=== PATIENT | female | born 1935 | race African-American/Black ===

== ENCOUNTER 2016-05-27 06:51 | Day surgery (SDC) | payer MEDICARE ==
[2016-05-27] MEDS ORDERED: ECOTRIN PO ONE (07:14)
[2016-05-27 07:49] LABS: Basophils % (Auto) 0.7 % (0.0-1.8); Hematocrit 39.1 % (30.3-42.9); Hemoglobin 12.9 gm/dl (10.1-14.3); Mean Corpuscular HGB Conc 33 % (30-34); Mean Corpuscular Hemoglobin 27 pg (28-32); Mean Corpuscular Volume 82 fl (79-97); Platelet Count 190 K/mm3 (140-440); Red Blood Count 4.76 M/mm3 (3.65-5.03); Red Cell Distribution Width 13.7 % (13.2-15.2); White Blood Count 3.9 K/mm3 (4.5-11.0)
[2016-05-27 07:59] LABS: INR 0.95 (0.87-1.13)
[2016-05-27] MEDS ORDERED: NACL 0.9% 500 ML 500 ML IV SCH (08:00)
[2016-05-27 08:02] LABS: Anion Gap 17 mmol/L; Blood Urea Nitrogen 9 mg/dL (7-17); Calcium 9.3 mg/dL (8.4-10.2); Carbon Dioxide 26 mmol/L (22-30); Chloride 103.2 mmol/L (98-107); Glucose 95 mg/dL (65-100); Potassium 3.7 mmol/L (3.6-5.0); Sodium 142 mmol/L (137-145)
[2016-05-27] MEDS ORDERED: XYLOCAINE 2% INFILTRATI ONE (10:49)
[2016-05-27] MEDS ORDERED: HEPARIN 10,000 UNITS/10 ML ONE (10:49)
[2016-05-27] MEDS ORDERED: HEPARIN/NS 5000 UNIT/500ML(CATH LAB) 500 ML IR ONE ×2 (10:49→11:05)
[2016-05-27] MEDS: VERSED ONE ×2 (11:04→11:40)
[2016-05-27] MEDS: SUBLIMAZE ONE ×2 (11:05→11:40)
--- NOTE | 2016-05-27 12:03 | Discharge Summary ---
Short Stay Discharge Plan Activity: advance as tolerated Weight Bearing Status: Partial Weight Bearing Diet: low fat, low cholesterol, low salt Wound: keep clean and dry Special Instructions: no heavy lifting (3 days) Follow up with: RAFA JIMÉNEZ MD [Primary Care Provider] - 7 Days JEVON ESQUIVEL MD [Staff Physician] - 7 Days
[2016-05-27] MEDS ORDERED: NACL 0.9% 1000 ML 1,000 ML IV SCH (13:00)
--- NOTE | 2016-05-27 13:51 | Cardiac Catherization Report ---
CARDIAC CATHETERIZATION REASON FOR PROCEDURE: Chest pain, recurrent chest pain despite negative noninvasive testing. PROCEDURE: The patient was prepped and draped in a sterile fashion after informed consent. Right femoral artery was entered using the Seldinger technique followed by placement of a 6-Yoruba sheath. Selective left and right coronary angiography was performed using #4 right and left Dane catheter. The right Judkin's was used for left ventricle angiography. The catheters were removed, sheath removed, and hemostasis achieved using manual compression. The patient was returned to the postprocedure unit in stable condition. There were no complications. FINDINGS: HEMODYNAMICS: Left ventricle end diastolic pressure was 14, following coronary angiography. The ascending aortic pressure . There was no significant pressure gradient on pullback across the aortic valve. CORONARY ANGIOGRAPHY: The left main coronary artery was angiographically normal. The left anterior descending artery contained mild luminal irregularities in its mid segment. The circumflex artery and its obtuse marginal branches were angiographically normal. The right coronary artery was dominant. This vessel contained mild luminal irregularities and mild atherosclerosis of its mid segment. No significant obstructive lesions were noted in either left or right coronary arteries. Left ventricular systolic function was normal, ejection fraction 60%. CONCLUSION: 1. Mild irregularities as above, otherwise angiographically normal coronary arteries. 2. Normal left ventricular systolic function, ejection fraction 60%. RECOMMENDATION: Risk factor modification and medical therapy. JOB# [id number] CA/NTS
[2016-05-27 15:55] VITALS: BP 162/73
== END 2016-05-27 16:14 | disposition home or self-care (01) ==
LOC: OPU 06:51
PROVIDERS: ATTEND Internal Medicine Cardiovascular Disease
DX: I25.10 Atherosclerotic heart disease of native coronary artery without angina pectoris (principal); M19.90 Unspecified osteoarthritis, unspecified site; I10 Essential (primary) hypertension
CPT/HCPCS: 36415; 80048; 85025; 85610; 85730; 93005; 93010; 93458; C1894; J1644; J2250; J3010; J7040; Q9967